=== PATIENT | female | born 1975 | race Caucasian/White ===

== ENCOUNTER 2017-06-13 22:26 | Inpatient (IN) ==
[~2017-06-13 22:26] MED LIST: Famotidine 20 MG/2 ML VIAL IVP PRN; Naloxone 0.4 MG/ML INJ IVP PRN; Ondansetron 4 MG/2 ML VIAL IVP PRN; Ringers Solution, Lactated 1,000 ML ONE
[2017-06-13] MEDS ORDERED: Ringers Solution, Lactated 1,000 ML IVC SCH (22:30)
--- NOTE | 2017-06-13 22:34 | OB/GYN History & Physical ---
Date of Encounter: 06/13/17 Time of Encounter: 22:30 Assessment and Plan (1) 39 weeks gestation of Current visit: Yes Status: Acute Admit to labor and delivery for active labor. (2) Grand multipara in labor in third trimester Current visit: Yes Status: Acute Admit for expectant management. Allow patient to ambulate. GBS negative. Anticipate (3) Rh negative state in antepartum period Current visit: Yes Status: Acute Collect cord blood Rhogam if needed. (4) Advanced maternal age (AMA), 40 years or greater Current visit: Yes Status: Acute Expectant management Anticipate History of Present Illness Chief complaint: Patient arrived with complaint of labor at 39w6d HPI: Ms. Garcia is a 41 year old female at 39.6 weeks that came in with complaints of contractions all day, worsening in intensity at 1600. Denies leakage of fluid. Pt reports small amount of bloody show, positive movement, and contractions approximately every 2 minutes. 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 Blood type A negative, received Rhogam at 28 weeks. Rubella Immune, Varicella Immune, HBSAG negative, RPR negative, GBS negative Past Med Surg Social Fam HX - Past Medical History Source: patient Medical history: no medical history Psychiatric history: no psych history - Past Surgical History Surgical History: no surgical history - Social History Smoking Status: Never smoker Smokeless Tobacco Status: No Alcohol use: none Drug use: none Occupational status: other Current living situation: Home - Independent Activity Level: Independent ambulation Recent Out of Country Travel Within the Last 8 Weeks: No Exposure or Possible Exposure to Illness During Travel: No - Family History Sister Living Status: Still Living Hx Family Cardiac Disorders: No Hx Family Respiratory Disorders: No Hx Family Cancer: No Hx Family GI Disorders: No Hx Family Endocrine Disorder: No Hx Family Neuromuscular Disorders: No Hx Family Neurologic Disorders: No Hx Family HEENT Disorders: No Hx Family Autoimmune Disorders: No Obstetrical History - Pregnancies : 18 Para: 14 Term: 14 : 0 Ab's: 3 Livin - History/Complications History/Complications: History of PPH x 2 Medications and Allergies Pnv95/Iron Fum/Folic Acid [ Caplet] 1 tab PO DAILY 04/20/16 [History] 3 Allergy/AdvReac Type Severity Reaction Status Date / Time No Known Allergies Allergy Verified 04/20/16 03:52 Review of System OB All systems PM: reviewed and no additional remarkable complaints except as stated - Cardiovascular Cardiovascular: no chest pain, no dyspnea on exertion - Respiratory Respiratory: no dyspnea on exertion, no pain on inspiration Exam - Constitutional Constitutional: well developed, well nourished, no acute distress - HEENT HEENT: Mucus Membranes Moist - Neck Neck exam: full ROM - Lungs Respiratory exam: CTAB - Cardiovascular Cardiovascular exam: RRR, +S1, +S2 - Breasts Breast: bilateral: normal - Abdomen Abdomen: Present: bowel sounds normal, gravid, non tender - Extremities Extremities exam: normal capillary refill, normal inspection - Vulva Vulva: bilateral: normal - Vagina Vagina: Present: normal moisture - Cervix Dilation: 4 Effacement: 100 Station: -1 - Uterus Uterus exam: Present: normal size - Comments Comments: FHR 135 bpm, moderate variability, + 15x15 accels, non-recurrent variable decelerations. Category II tracing. Results All other labs normal. - VTE Reasons for not Prescribing Prophylaxis: Treatment not Indicated - Low risk for VTE
[2017-06-13 22:43] LABS: Basophils % 0.2 %; Eosinophils % 0.4 %; Hematocrit 33.1 % (35.3-44.9); Hemoglobin 11.2 g/dL (11.5-15.4); Immature Granulocytes % 0.4 % (0-4); Immature Platelets 1.5 % (1.1-6.1); Lymphocytes # 1.1 K/mcL (0.6-4.6); Lymphocytes % 13.6 %; Mean Corpuscular HGB Conc 33.8 g/dL (31.6-35.5); Mean Corpuscular Hemoglobin 31.7 pg (28.0-33.3); Mean Corpuscular Volume 93.8 fL (83.0-100.0); Monocytes # 0.5 K/mcL (0.0-1.3); Monocytes % 5.7 %; Neutrophils # 6.6 K/mcL (1.6-8.9); Platelet Count 214 K/mcL (140-400); Red Blood Count 3.53 M/mcL (3.82-4.97); Red Cell Distribution Width 14.7 % (11.5-14.5); Segmented Neutrophils % 79.7 %
[2017-06-13 22:49] LABS: Amphetamine Screen,Urine Negative ng/mL (Cutoff=1000); Barbiturate Screen,Urine Negative ng/mL (Cutoff=200); Benzodiazepines Screen,Urine Negative ng/mL (Cutoff=200); Cannabinoid Screen,Urine Negative ng/mL (Cutoff = 50); Cocaine Screen,Urine Negative ng/mL (Cutoff= 300); Opiate Screen,Urine Negative ng/mL (Cutoff=300); Phencyclidine Screen,Urine Negative ng/mL (Cutoff=25)
[2017-06-14] MEDS ORDERED: Oxytocin 20 units/ LR 1000 mL 20 UNIT/1,000 ML BAG IVC ONE ×2 (00:03→01:51)
[2017-06-14] MEDS ORDERED: Ibuprofen 600 MG TABLET PO ONE (00:42)
--- NOTE | 2017-06-14 00:48 | OB/GYN Procedure Note ---
Delivery - Delivery Date: 06/14/17 Provider: Lennie Gonzalez (Clemencia Ledbetter [facility]) Intrapartum events: none Delivery induction: none Delivery augmentation: rupture of membranes Delivery monitor: external FHT, external uterine Anesthesia: none Estimated Blood Loss: 200 - Infant (s) Infant A Delivery Date: 06/14/17 Delivery Time: 00:28 Presentation: vertex Position: LIU Route of delivery: Gender: Female Viability: Viable Pounds: 7 Ounces: 8 Weight Gram: 3390 kg at 1 minute: 8 at 5 mins: 9 Shoulder Dystocia: not encountered Specimens collected: cord blood Placenta: spontaneous Cord: nuchal cord, 3 umbilical vessels, delivered through nuchal - Repair Episiotomy: none Laceration Description: None - Complications Delivery complications: none Delivery comments: Under maternal effort, viable female infant delivered via spontaneous vaginal delivery over intact perineum. placed on maternal abdomen, cord clamped and cut after pulsation ceased. Placenta delivered spontaneously and intact. Perineum inspected and no repair needed. EBL 200 mL, fundus firm and u/3. Mother and in stable condition for 2 hour recovery. - Disposition Mom disposition: stable in LDR disposition: stable in LDR
[2017-06-14] MEDS ORDERED: Methylergonovine 0.2 MG/ML AMPUL IM ONE ×2 (01:05→10:59)
[2017-06-14] MEDS ORDERED: Rho Immune Globulin 1,500 UNIT SYRINGE IM PRN (03:26)
[2017-06-14] MEDS ORDERED: *HR* HYDROcodone/Acet 5/325 mg TABLET PO PRN (03:26)
[2017-06-14] MEDS ORDERED: Oxytocin 20 units/ LR 1000 mL 20 UNIT/1,000 ML BAG IVC SCH (03:26)
[2017-06-14] MEDS ORDERED: Ibuprofen 600 MG TABLET PO PRN (03:26)
[2017-06-14] MEDS ORDERED: Acetaminophen 325 MG TABLET PO PRN (03:26)
[2017-06-14] MEDS ORDERED: Measles/Mumps/Rubella Vacc 0.5 ML VIAL SQ PRN (03:26)
[2017-06-14 07:53] VITALS: BP 114/70
--- NOTE | 2017-06-14 08:17 | Discharge Summary ---
Date of Encounter: 06/14/17 Time of Encounter: 08:14 - Discharge Diagnosis (1) Vaginal delivery Priority: Primary Status: Acute Comments: Doing well S/P vaginal delivery Lochia is light and without clots Pain is well controlled. Denies headache, vision changes, and epigastric pain. VSS is going well. Discharge home this morning due to patient request. (2) Rh negative state in antepartum period Priority: Secondary Status: Acute Comments: To have RhoGam prior to discharge if needed per KB. - Discharge Medications Home Medications: Pnv95/Iron Fum/Folic Acid [ Caplet] 1 tab PO DAILY 04/20/16 [History] Acetaminophen [Tylenol] 650 mg PO Q6HR PRN tablet 06/14/17 [Rx] Dibucaine [Nupercainal] 1 appl TP BID PRN tube 06/14/17 [Rx] Docusate [Colace] 100 mg PO BID capsule 06/14/17 [Rx] Ferrous Sulfate 325 mg PO DAILY tablet 06/14/17 [Rx] Ibuprofen [Motrin] 600 mg PO Q6HR PRN tablet 06/14/17 [Rx] Allergies/Adverse Reactions: 3 Allergy/AdvReac Type Severity Reaction Status Date / Time No Known Allergies Allergy Verified 04/20/16 03:52 Data Procedures and tests throughout hospitalization: Laboratory Tests 06/13/17 06/13/17 06/14/17 22:33 22:33 01:23 WBC 8.2 RBC 3.53 L Hgb 11.2 L Hct 33.1 L MCV 93.8 MCH 31.7 MCHC 33.8 RDW 14.7 H Plt Count 214 MPV 9.0 L Immature Gran % 0.4 Seg Neutrophils % 79.7 Lymphocytes % 13.6 Monocytes % 5.7 Eosinophils % 0.4 Basophils % 0.2 Neutrophils # 6.6 Lymphocytes # 1.1 Monocytes # 0.5 Eosinophils # 0.0 Basophils # 0.0 Immature Plt Fraction 1.5 Urine Opiates Screen Negative Ur Barbiturates Screen Negative Ur Phencyclidine Scrn Negative Ur Amphetamines Screen Negative U Benzodiazepines Scrn Negative Urine Cocaine Screen Negative U Marijuana (THC) Screen Negative Baby's Blood Type O RH NEGATIVE Mother's Blood Type A RH NEGATIVE Rhogam Indicated NO Labs on day of discharge: Labs from last 24 hours 06/14/17 06/13/17 06/13/17 01:23 22:33 22:33 WBC 8.2 RBC 3.53 L Hgb 11.2 L Hct 33.1 L MCV 93.8 MCH 31.7 MCHC 33.8 RDW 14.7 H Plt Count 214 MPV 9.0 L Immature Gran % 0.4 Seg Neutrophils % 79.7 Lymphocytes % 13.6 Monocytes % 5.7 Eosinophils % 0.4 Basophils % 0.2 Neutrophils # 6.6 Lymphocytes # 1.1 Monocytes # 0.5 Eosinophils # 0.0 Basophils # 0.0 Immature Plt Fraction 1.5 Urine Opiates Screen Negative Ur Barbiturates Screen Negative Ur Phencyclidine Scrn Negative Ur Amphetamines Screen Negative U Benzodiazepines Scrn Negative Urine Cocaine Screen Negative U Marijuana (THC) Screen Negative Baby's Blood Type O RH NEGATIVE Mother's Blood Type A RH NEGATIVE Rhogam Indicated NO Date of admission: 06/13/17 22:26 Primary care physician: PCP MAYELIN Consults: 06/14/17 03:26 Consult to Director Service [CONS] Routine Comment: Vaginal delivery, consult needed Discharging clinician: Marline Echols Anticipated date of discharge: 06/14/17 - Patient Status Disposition: Home, Self-Care Condition: Good Functional capacity at discharge: independent ambulation Overall status at discharge: patient is back to baseline - Discharge Instructions Follow Up With: NONE,PCP [Primary Care Provider] - Kira Cee DO [Partnered Physician] - - Diet and Activity Activity: increase activity as tolerated Diet: regular diet Hospital Course Reason for admission: active labor, IUP at term Delivery: Episiotomy: none Laceration: none Other procedures: none complications: none Discharge diagnosis: IUP at term delivered Kellogg baby: female Time Attestation: Total time spent providing and/or coordinating discharge services: Time Spent: Less than 30 minutes Exam - Constitutional Vitals: Temp Pulse Resp BP Pulse Ox 98.9 F 79 16 114/70 97 06/14/17 07:30 06/14/17 07:30 06/14/17 07:30 06/14/17 07:30 06/14/17 05:30 General appearance IM: cooperative, A&O X 3, pleasant - Respiratory Respiratory exam: Present: CTAB - Cardiovascular Cardiovascular exam IM: Present: RRR, +S1, +S2 - GI/Abdominal GI/Abdominal exam IM: normal bowel sounds, soft - Rectal Rectal exam: deferred - Uterine Tone: Firm Uterus Position: 2 Fingers Below Umbilicus, Midline - Extremities Exam Extremities exam IM: Present: normal capillary refill, normal inspection, radial pulses palpable and symmetrical - Neurological Exam Neurological exam: alert, oriented X3
[2017-06-14] MEDS ORDERED: Prenatal Vit/FA 1 EACH TABLET PO SCH (09:00)
== END 2017-06-14 11:00 | disposition home or self-care (01) | DRG 775 ==
LOC: 1NENULAB → 1NENUOBS 06-14 04:28
PROVIDERS: ADMIT Student in an Organized Health Care Education/Training Program; ATTEND Student in an Organized Health Care Education/Training Program